=== PATIENT | female | born 1970 | race Caucasian/White ===

== ENCOUNTER 2020-07-15 18:39 | Inpatient (IN) | payer OTHER ==
[~2020-07-15] VITALS: Ht 162.6 cm; Wt 101.3 kg
[2020-07-15 19:27] LABS: Basophils # (auto) 0.1 10 ^3/uL (0-0.2); Basophils % (auto) 1.5 % (0.0-2.0); Eosinophils # (auto) 0.1 10 ^3/uL (0-0.8); Eosinophils % (auto) 0.8 % (0.0-7.0); Hematocrit 37.5 % (36.0-46.0); Hemoglobin 12.7 g/dL (12.2-16.2); Lymphocytes # (auto) 1.2 10 ^3/uL (0.4-5.4); Lymphocytes % (auto) 16.6 % (10.0-50.0); Mean Corpuscular Hgb Conc. 33.9 g/dL (32.0-36.0); Mean Corpuscular Volume 91.2 fL (80.0-100.0); Monocytes # (auto) 0.6 10 ^3/uL (0-1.3); Monocytes % (auto) 8.3 % (0.0-12.0); Neutrophils # (auto) 5.1 10 ^3/uL (1.6-8.6); Neutrophils % (auto) 72.8 % (37.0-80.0); Nucleated Red Blood Cells % 0.1 %; Platelet Count (auto) 235 10^3/uL (140-450); Red Blood Cells 4.12 10^6/uL (4.0-5.20); Red Cell Distribution Width 14.5 % (11.8-14.3)
[2020-07-15 19:47] LABS: Calcium 8.4 mg/dL (8.5-10.1)
[2020-07-15 20:04] LABS: Bilirubin, Total 8.2 mg/dL (0.2-1.0); Total Protein 7.1 g/dL (6.4-8.2)
[2020-07-15 20:18] LABS: Potassium 2.8 mmol/L (3.5-5.1)
[2020-07-15 20:27] LABS: BUN/Creatinine Ratio 12.5
[2020-07-15] MEDS ORDERED: POTASSIUM EFFERVESENT TAB 25 MEQ PO ONE (20:30)
[2020-07-15] MEDS ORDERED: POTASSIUM CHL 20MEQ/100ML 100 ML IV ONE (21:30)
[2020-07-15] MEDS ORDERED: ONDANSETRON HCL 4 MG/2 ML VIAL IV PRN (23:15)
[2020-07-16 00:20] LABS: Urine Amorphous Crystal FEW /hpf (None Seen); Urine Bacteria FEW /hpf (None Seen); Urine Blood Negative /uL (Negative); Urine Specific Gravity 1.007 (1.001-1.035); Urine WBC 1 /hpf (0 - 5)
[2020-07-16] MEDS ORDERED: DEXTROSE (50%) 50ML SYRG IV PRN (02:15)
[2020-07-16 02:38] VITALS: BP 164/89
[2020-07-16] MEDS ORDERED: cloNIDine HCL 0.1 MG TAB PO PRN (02:45)
[2020-07-16] MEDS: SOD CHL 0.45% WITH 20MEQ KCL 1,000 ML IV SCH ×2 (03:08→13:55)
[2020-07-16] MEDS: traMADol HCL 50 MG TAB PO PRN ×3 (03:08→23:52)
[2020-07-16] MEDS ORDERED: PNEUMOCOCCAL VACC POLYS 25 MCG/0.5 ML VIAL IM ONE (03:45)
[2020-07-16] MEDS ORDERED: INSREG3 IV (04:00)
[2020-07-16] MEDS ORDERED: METF-370 PO (04:00)
[2020-07-16] MEDS ORDERED: IBUP200C3 PO (04:00)
[2020-07-16] MEDS ORDERED: OXYB10TA14 PO (04:00)
[2020-07-16] MEDS ORDERED: LEVO25TA6 PO (04:00)
[2020-07-16] MEDS ORDERED: INSU100I43 SC (04:00)
[2020-07-16] MEDS ORDERED: INSUINJ2 SC (04:00)
[2020-07-16 05:00] VITALS: BP 164/89
[2020-07-16 06:20] LABS: Basophils # (auto) 0 10 ^3/uL (0-0.2); Basophils % (auto) 0.7 % (0.0-2.0); Eosinophils # (auto) 0.1 10 ^3/uL (0-0.8); Eosinophils % (auto) 1.1 % (0.0-7.0); Hematocrit 32.1 % (36.0-46.0); Hemoglobin 11.2 g/dL (12.2-16.2); Mean Corpuscular Hemoglobin 31.7 pg (28.0-32.0); Mean Corpuscular Hgb Conc. 34.7 g/dL (32.0-36.0); Mean Corpuscular Volume 91.1 fL (80.0-100.0); Monocytes # (auto) 0.4 10 ^3/uL (0-1.3); Monocytes % (auto) 7.6 % (0.0-12.0); Neutrophils # (auto) 4.1 10 ^3/uL (1.6-8.6); Neutrophils % (auto) 72.6 % (37.0-80.0); Platelet Count (auto) 181 10^3/uL (140-450); Red Blood Cells 3.52 10^6/uL (4.0-5.20); Red Cell Distribution Width 14.8 % (11.8-14.3); White Blood Cell 5.7 10^3/uL (4.4-10.8)
[2020-07-16 06:25] LABS: Potassium 3.4 mmol/L (3.5-5.1)
[2020-07-16 06:30] LABS: INR 1.28 (0.9-1.15); Partial Thromboplastin Time 30.5 sec (23.0-31.2)
[2020-07-16 06:31] LABS: Albumin 2.5 g/dL (3.4-5.0); BUN/Creatinine Ratio 12.1; Bilirubin, Total 7.6 mg/dL (0.2-1.0); Total Protein 5.9 g/dL (6.4-8.2)
[2020-07-16] MEDS: ACCU-CHEK COMFORT CURVE STRIP VI SCH ×4 (06:41→21:53)
[2020-07-16] MEDS: LEVOTHYROXINE SODIUM 50 MCG TAB PO SCH (06:41)
[2020-07-16] MEDS: InsuLIN REG 1unit/0.01ml Soln (100units/ml) SC SCH ×4 (06:46→21:55)
[2020-07-16 09:00] VITALS: BP 124/76
[2020-07-16] MEDS: INSULIN NPH Isophane (HUMAN) 1unit/0.01ml Susp(100units/ml) SC SCH ×2 (10:00→21:54)
[2020-07-16] MEDS: metFORMIN HYDROCHLORIDE 500 MG TAB PO SCH ×2 (10:10→21:53)
[2020-07-16] MEDS: LISINOPRIL 20 MG TAB PO SCH (10:13)
[2020-07-16] MEDS: PROPRANOLOL HCL 20 MG TAB PO SCH (10:13)
[2020-07-16] MEDS: LACTULOSE 20Gm/30ML SOLN PO SCH ×2 (10:28→21:53)
[2020-07-16 13:48] VITALS: BP 133/89
[2020-07-16] MEDS: OXYBUTYNIN CHL 5 MG TAB PO SCH (13:54)
[2020-07-16 16:37] VITALS: BP 158/92
[2020-07-16 22:00] VITALS: BP 116/70
[2020-07-17] VITALS (11 sets, daily range): BP systolic 115–164; BP diastolic 73–93
[2020-07-17 06:22] LABS: Basophils # (auto) 0 10 ^3/uL (0-0.2); Basophils % (auto) 0.6 % (0.0-2.0); Eosinophils # (auto) 0.1 10 ^3/uL (0-0.8); Eosinophils % (auto) 1.6 % (0.0-7.0); Hemoglobin 11.8 g/dL (12.2-16.2); Lymphocytes # (auto) 1.3 10 ^3/uL (0.4-5.4); Lymphocytes % (auto) 19.4 % (10.0-50.0); Mean Corpuscular Hemoglobin 31.7 pg (28.0-32.0); Mean Corpuscular Hgb Conc. 34.6 g/dL (32.0-36.0); Mean Corpuscular Volume 91.5 fL (80.0-100.0); Monocytes # (auto) 0.6 10 ^3/uL (0-1.3); Monocytes % (auto) 8.6 % (0.0-12.0); Neutrophils # (auto) 4.5 10 ^3/uL (1.6-8.6); Neutrophils % (auto) 69.8 % (37.0-80.0); Platelet Count (auto) 182 10^3/uL (140-450); Red Blood Cells 3.71 10^6/uL (4.0-5.20); Red Cell Distribution Width 15.1 % (11.8-14.3); White Blood Cell 6.5 10^3/uL (4.4-10.8)
[2020-07-17] MEDS: ACCU-CHEK COMFORT CURVE STRIP VI SCH ×4 (06:36→22:26)
[2020-07-17] MEDS: InsuLIN REG 1unit/0.01ml Soln (100units/ml) SC SCH ×4 (06:36→22:26)
[2020-07-17] MEDS: LEVOTHYROXINE SODIUM 50 MCG TAB PO SCH (06:36)
[2020-07-17 06:46] LABS: Potassium 3.4 mmol/L (3.5-5.1)
[2020-07-17 07:21] LABS: Albumin 2.7 g/dL (3.4-5.0); BUN/Creatinine Ratio 15.2; Bilirubin, Total 8.2 mg/dL (0.2-1.0); Total Protein 6.5 g/dL (6.4-8.2)
[2020-07-17] MEDS: metFORMIN HYDROCHLORIDE 500 MG TAB PO SCH ×2 (10:00→22:00)
[2020-07-17] MEDS: INSULIN NPH Isophane (HUMAN) 1unit/0.01ml Susp(100units/ml) SC SCH (10:00)
[2020-07-17] MEDS: OXYBUTYNIN CHL 5 MG TAB PO SCH (10:15)
[2020-07-17] MEDS: LISINOPRIL 20 MG TAB PO SCH (10:17)
[2020-07-17] MEDS: traMADol HCL 50 MG TAB PO PRN ×2 (10:18→19:47)
[2020-07-17] MEDS: PROPRANOLOL HCL 20 MG TAB PO SCH (10:18)
[2020-07-17] MEDS ORDERED: IOHEXOL 300 MG/ML 100ML BOTTLE IJ ONE (14:48)
[2020-07-17] MEDS ORDERED: MEPERIDINE HCL (50 MG/ML) 1 ML VIAL ONE (15:22)
[2020-07-17] MEDS ORDERED: MIDAZOLAM HCL 1MG/1ML-2 ML VIAL ONE (15:22)
[2020-07-17] MEDS ORDERED: fentaNYL CITRATE 100 MCG/2 ML VL ONE (15:22)
[2020-07-17] MEDS ORDERED: DexAMETHasone SOD PHOS 10MG/1ML VIAL INJ ONE (15:36)
[2020-07-17] MEDS ORDERED: PROPOFOL 10 MG/ML 20 ML IV ONE (15:36)
[2020-07-17] MEDS ORDERED: ePHEDrine SULFATE 50 MG/ML AMP IV PRN (16:15)
[2020-07-17] MEDS ORDERED: ONDANSETRON HCL 4 MG/2 ML VIAL IV PRN (16:15)
[2020-07-17] MEDS ORDERED: HYDROmorphone HCL 2 MG/ML VL IV PRN (16:15)
[2020-07-17] MEDS ORDERED: KETOROLAC TROMETH 30 MG/ML 1ML VIAL IV ONE (16:15)
[2020-07-17] MEDS ORDERED: MIDAZOLAM HCL 1MG/1ML-2 ML VIAL IV PRN (16:15)
[2020-07-17] MEDS ORDERED: MORPHINE SULFATE 4 MG/ML SYR/VIAL IV PRN (16:15)
[2020-07-17] MEDS ORDERED: LABETALOL HCL 5 MG/ML 4ML SYRINGE IV PRN (16:15)
[2020-07-18] MEDS: INSULIN NPH Isophane (HUMAN) 1unit/0.01ml Susp(100units/ml) SC SCH ×2 (00:17→11:26)
[2020-07-18 05:16] VITALS: BP 98/53
[2020-07-18 06:12] LABS: Albumin 2.8 g/dL (3.4-5.0); Bilirubin, Direct 3.6 mg/dL (0-0.2)
[2020-07-18 06:29] LABS: Bilirubin, Total 4.4 mg/dL (0.2-1.0); Total Protein 6.6 g/dL (6.4-8.2)
[2020-07-18] MEDS: LEVOTHYROXINE SODIUM 50 MCG TAB PO SCH (06:39)
[2020-07-18] MEDS: ACCU-CHEK COMFORT CURVE STRIP VI SCH ×4 (06:40→21:40)
[2020-07-18] MEDS: InsuLIN REG 1unit/0.01ml Soln (100units/ml) SC SCH ×4 (06:44→21:51)
[2020-07-18 08:24] VITALS: BP 130/60
[2020-07-18] MEDS: traMADol HCL 50 MG TAB PO PRN ×3 (08:32→19:51)
[2020-07-18 08:50] LABS: Hepatitis B Surface Antigen Negative (Negative)
[2020-07-18] MEDS: LISINOPRIL 20 MG TAB PO SCH (09:55)
[2020-07-18] MEDS: OXYBUTYNIN CHL 5 MG TAB PO SCH (09:55)
[2020-07-18] MEDS: PROPRANOLOL HCL 20 MG TAB PO SCH (09:57)
[2020-07-18] MEDS: metFORMIN HYDROCHLORIDE 500 MG TAB PO SCH ×2 (10:00→21:54)
[2020-07-18 13:00] VITALS: BP_SYST 120; BP_SYST 126; BP_SYST 134; BP_DIAS 73; BP_DIAS 78; BP_DIAS 84
[2020-07-18 13:10] VITALS: BP 120/78
[2020-07-18 16:35] VITALS: BP 110/75
[2020-07-18] MEDS: KETOROLAC TROMETH 30 MG/ML 1ML VIAL IV PRN (21:39)
[2020-07-18 22:00] VITALS: BP 132/71
[2020-07-19] MEDS: INSULIN NPH Isophane (HUMAN) 1unit/0.01ml Susp(100units/ml) SC SCH ×3 (00:09→22:05)
[2020-07-19 05:00] VITALS: BP 107/67
[2020-07-19] MEDS: LEVOTHYROXINE SODIUM 50 MCG TAB PO SCH (06:31)
[2020-07-19] MEDS: ACCU-CHEK COMFORT CURVE STRIP VI SCH ×4 (06:32→21:52)
[2020-07-19] MEDS: KETOROLAC TROMETH 30 MG/ML 1ML VIAL IV PRN ×3 (06:43→20:40)
[2020-07-19] MEDS: InsuLIN REG 1unit/0.01ml Soln (100units/ml) SC SCH ×4 (06:43→22:05)
[2020-07-19 09:00] VITALS: BP 95/65
[2020-07-19] MEDS: metFORMIN HYDROCHLORIDE 500 MG TAB PO SCH ×2 (09:36→21:52)
[2020-07-19] MEDS: LISINOPRIL 20 MG TAB PO SCH (09:36)
[2020-07-19] MEDS: OXYBUTYNIN CHL 5 MG TAB PO SCH (09:37)
[2020-07-19] MEDS: PROPRANOLOL HCL 20 MG TAB PO SCH (09:37)
[2020-07-19 11:13] LABS: Hepatitis A Ab IgM Negative
[2020-07-19 11:15] LABS: Hepatitis B Core IgM Negative
[2020-07-19 11:53] LABS: Hepatitis C Antibody Negative (Negative)
[2020-07-19 13:00] VITALS: BP 145/93
[2020-07-19 17:03] VITALS: BP 104/64
[2020-07-19 22:00] VITALS: BP 139/82
[2020-07-20 05:00] VITALS: BP 101/60
[2020-07-20] MEDS: KETOROLAC TROMETH 30 MG/ML 1ML VIAL IV PRN ×4 (05:49→21:27)
[2020-07-20] MEDS: InsuLIN REG 1unit/0.01ml Soln (100units/ml) SC SCH ×4 (06:43→21:28)
[2020-07-20] MEDS: LEVOTHYROXINE SODIUM 50 MCG TAB PO SCH (06:44)
[2020-07-20] MEDS: ACCU-CHEK COMFORT CURVE STRIP VI SCH ×4 (07:10→21:26)
[2020-07-20 09:02] VITALS: BP 129/77
[2020-07-20] MEDS: OXYBUTYNIN CHL 5 MG TAB PO SCH (10:04)
[2020-07-20] MEDS: PROPRANOLOL HCL 20 MG TAB PO SCH (10:05)
[2020-07-20] MEDS: metFORMIN HYDROCHLORIDE 500 MG TAB PO SCH ×2 (10:05→21:26)
[2020-07-20] MEDS: INSULIN NPH Isophane (HUMAN) 1unit/0.01ml Susp(100units/ml) SC SCH ×2 (10:06→21:28)
[2020-07-20] MEDS: LISINOPRIL 20 MG TAB PO SCH (10:06)
[2020-07-20] MEDS ORDERED: cefTRIAXone 1GM/50ML D5W 50 ML IV ONE (11:00)
[2020-07-20] MEDS ORDERED: AZITHROMYCIN 250 MG TAB PO ONE (11:00)
[2020-07-20 12:37] VITALS: BP 114/74
[2020-07-20] MEDS: PROMETHAZINE-DM 5 ML ORAL SYRUP PO PRN ×2 (16:17→21:26)
[2020-07-20 16:57] VITALS: BP 116/63
[2020-07-20 23:34] VITALS: BP 110/69
[2020-07-21] MEDS: KETOROLAC TROMETH 30 MG/ML 1ML VIAL IV PRN ×3 (04:18→21:43)
[2020-07-21] MEDS: PROMETHAZINE-DM 5 ML ORAL SYRUP PO PRN ×3 (04:18→21:43)
[2020-07-21 05:20] LABS: Basophils # (auto) 0 10 ^3/uL (0-0.2); Basophils % (auto) 0.4 % (0.0-2.0); Eosinophils # (auto) 0.2 10 ^3/uL (0-0.8); Eosinophils % (auto) 2.6 % (0.0-7.0); Hematocrit 40.1 % (36.0-46.0); Hemoglobin 13.3 g/dL (12.2-16.2); Lymphocytes # (auto) 1.8 10 ^3/uL (0.4-5.4); Lymphocytes % (auto) 20.9 % (10.0-50.0); Mean Corpuscular Hemoglobin 30.5 pg (28.0-32.0); Mean Corpuscular Hgb Conc. 33.3 g/dL (32.0-36.0); Mean Corpuscular Volume 91.7 fL (80.0-100.0); Monocytes # (auto) 0.7 10 ^3/uL (0-1.3); Monocytes % (auto) 8.4 % (0.0-12.0); Neutrophils % (auto) 67.7 % (37.0-80.0); Platelet Count (auto) 236 10^3/uL (140-450); Red Blood Cells 4.37 10^6/uL (4.0-5.20); Red Cell Distribution Width 14.4 % (11.8-14.3); White Blood Cell 8.8 10^3/uL (4.4-10.8)
[2020-07-21 05:51] LABS: Albumin 2.8 g/dL (3.4-5.0); BUN/Creatinine Ratio 27.7; Bilirubin, Total 2.4 mg/dL (0.2-1.0); Calcium 9.5 mg/dL (8.5-10.1); Total Protein 7.1 g/dL (6.4-8.2)
[2020-07-21 05:54] VITALS: BP 117/69
[2020-07-21] MEDS: InsuLIN REG 1unit/0.01ml Soln (100units/ml) SC SCH ×4 (06:29→21:41)
[2020-07-21] MEDS: ACCU-CHEK COMFORT CURVE STRIP VI SCH ×4 (06:29→21:40)
[2020-07-21] MEDS: LEVOTHYROXINE SODIUM 50 MCG TAB PO SCH (06:29)
[2020-07-21 08:30] VITALS: BP 150/86
[2020-07-21] MEDS: cefTRIAXone 1GM/50ML D5W 50 ML IV SCH (09:31)
[2020-07-21] MEDS: OXYBUTYNIN CHL 5 MG TAB PO SCH (09:32)
[2020-07-21] MEDS: PROPRANOLOL HCL 20 MG TAB PO SCH (09:32)
[2020-07-21] MEDS: metFORMIN HYDROCHLORIDE 500 MG TAB PO SCH ×2 (09:32→21:40)
[2020-07-21] MEDS: LISINOPRIL 20 MG TAB PO SCH (09:33)
[2020-07-21] MEDS: AZITHROMYCIN 250 MG TAB PO SCH (09:33)
[2020-07-21] MEDS: INSULIN NPH Isophane (HUMAN) 1unit/0.01ml Susp(100units/ml) SC SCH ×2 (09:34→21:42)
[2020-07-21 13:24] VITALS: BP 91/57
[2020-07-21 16:27] VITALS: BP 157/71
[2020-07-22] MEDS: KETOROLAC TROMETH 30 MG/ML 1ML VIAL IV PRN ×3 (04:53→14:46)
[2020-07-22] MEDS: PROMETHAZINE-DM 5 ML ORAL SYRUP PO PRN ×3 (04:53→14:47)
[2020-07-22] MEDS: ACCU-CHEK COMFORT CURVE STRIP VI SCH ×3 (06:03→17:00)
[2020-07-22] MEDS: LEVOTHYROXINE SODIUM 50 MCG TAB PO SCH (06:03)
[2020-07-22] MEDS: InsuLIN REG 1unit/0.01ml Soln (100units/ml) SC SCH ×3 (06:13→17:00)
[2020-07-22 06:26] VITALS: BP 108/69
[2020-07-22 07:54] VITALS: BP 123/74
[2020-07-22 08:55] VITALS: BP 123/74
[2020-07-22] MEDS: cefTRIAXone 1GM/50ML D5W 50 ML IV SCH (10:21)
[2020-07-22] MEDS: LISINOPRIL 20 MG TAB PO SCH (10:24)
[2020-07-22] MEDS: OXYBUTYNIN CHL 5 MG TAB PO SCH (10:25)
[2020-07-22] MEDS: metFORMIN HYDROCHLORIDE 500 MG TAB PO SCH (10:25)
[2020-07-22] MEDS: AZITHROMYCIN 250 MG TAB PO SCH (10:25)
[2020-07-22] MEDS: PROPRANOLOL HCL 20 MG TAB PO SCH (10:27)
[2020-07-22] MEDS: INSULIN NPH Isophane (HUMAN) 1unit/0.01ml Susp(100units/ml) SC SCH (10:29)
[2020-07-22 11:53] VITALS: BP 107/80
[2020-07-22 15:41] VITALS: BP 107/80
== END 2020-07-22 17:50 | DRG 435 ==
LOC: ER 18:42 → EEVIPCON 18:42 → OVERFLOW 18:43 → CENTRAL 07-16 02:38 → WEST WING 07-22 12:23
PROVIDERS: ADMIT Internal Medicine; ATTEND Internal Medicine
PROC: BF111ZZ Fluoroscopy of Biliary and Pancreatic Ducts using Low Osmolar Contrast (ICD-10-PCS; 2020-07-17)
PROC: 0FD98ZX Extraction of Common Bile Duct, Via Natural or Artificial Opening Endoscopic, Diagnostic (ICD-10-PCS; 2020-07-17)
PROC: 0F798DZ Dilation of Common Bile Duct with Intraluminal Device, Via Natural or Artificial Opening Endoscopic (ICD-10-PCS; principal; 2020-07-17 15:15)
DX: C25.9 Malignant neoplasm of pancreas, unspecified (principal); K83.1 Obstruction of bile duct; E44.1 Mild protein-calorie malnutrition; E87.6 Hypokalemia; K75.9 Inflammatory liver disease, unspecified; Z20.828 Contact with and (suspected) exposure to other viral communicable diseases; E11.9 Type 2 diabetes mellitus without complications; F20.9 Schizophrenia, unspecified; F41.9 Anxiety disorder, unspecified; E03.9 Hypothyroidism, unspecified; I10 Essential (primary) hypertension; M81.0 Age-related osteoporosis without current pathological fracture; E66.01 Morbid (severe) obesity due to excess calories; E78.5 Hyperlipidemia, unspecified; I25.10 Atherosclerotic heart disease of native coronary artery without angina pectoris; Z79.899 Other long term (current) drug therapy; Z68.38 Body mass index [BMI] 38.0-38.9, adult; Z98.51 Tubal ligation status; I25.2 Old myocardial infarction; Z90.710 Acquired absence of both cervix and uterus; Z90.49 Acquired absence of other specified parts of digestive tract; Z80.0 Family history of malignant neoplasm of digestive organs; Z88.6 Allergy status to analgesic agent; Z88.5 Allergy status to narcotic agent; Z79.4 Long term (current) use of insulin; Z80.1 Family history of malignant neoplasm of trachea, bronchus and lung; Z80.7 Family history of other malignant neoplasms of lymphoid, hematopoietic and related tissues; Z86.74 Personal history of sudden cardiac arrest; Z87.891 Personal history of nicotine dependence; Z80.3 Family history of malignant neoplasm of breast; Z82.0 Family history of epilepsy and other diseases of the nervous system; Z82.49 Family history of ischemic heart disease and other diseases of the circulatory system; Z80.41 Family history of malignant neoplasm of ovary
CPT/HCPCS: 36415; 71045; 71046; 74018; 74176; 74181; 74183; 76001; 76705; 80053; 80074; 80076; 80320; 81001; 82105; 82140; 82248; 82378; 82962; 83605; 83690; 84443; 85025; 85610; 85730; 86301; 87081; 93005; 96365; 96366; G0378; J0696; J1100; J1815; J1885; J2250; J2704; J3480

== ENCOUNTER 2020-09-18 17:50 | Emergency (ER) | payer OTHER ==
[~2020-09-18] VITALS: Ht 162.6 cm; Wt 90.7 kg
[~2020-09-18 17:50] MED LIST: IBUP200C3 PO; INSREG3 IV; INSU100I43 SC; INSUINJ2 SC; LEVO25TA6 PO; METF-370 PO; OXYB10TA14 PO
[2020-09-18] MEDS ORDERED: MORPHINE SULF INJ 2 MG/ML SYRINGE 1ML IV ONE (19:15)
[2020-09-18] MEDS ORDERED: ONDANSETRON HCL 4 MG/2 ML VIAL IV ONE ×2 (19:15→22:45)
[2020-09-18] MEDS ORDERED: SODIUM CHLORIDE 0.9% 1,000 ML IVB ONE (19:15)
[2020-09-18 20:52] LABS: Basophils # (auto) 0.1 10 ^3/uL (0-0.2); Basophils % (auto) 1.2 % (0.0-2.0); Eosinophils # (auto) 0.1 10 ^3/uL (0-0.8); Hematocrit 36.8 % (36.0-46.0); Hemoglobin 12.6 g/dL (12.2-16.2); Lymphocytes # (auto) 1.2 10 ^3/uL (0.4-5.4); Lymphocytes % (auto) 19.8 % (10.0-50.0); Mean Corpuscular Hemoglobin 30.9 pg (28.0-32.0); Mean Corpuscular Hgb Conc. 34.3 g/dL (32.0-36.0); Mean Corpuscular Volume 90.1 fL (80.0-100.0); Monocytes # (auto) 0.3 10 ^3/uL (0-1.3); Monocytes % (auto) 5.3 % (0.0-12.0); Neutrophils # (auto) 4.2 10 ^3/uL (1.6-8.6); Neutrophils % (auto) 71.7 % (37.0-80.0); Platelet Count (auto) 243 10^3/uL (140-450); Red Blood Cells 4.08 10^6/uL (4.0-5.20); Red Cell Distribution Width 13.7 % (11.8-14.3); White Blood Cell 5.8 10^3/uL (4.4-10.8)
[2020-09-18 21:04] LABS: INR 1.18 (0.9-1.15); Partial Thromboplastin Time 25.1 sec (23.0-31.2)
[2020-09-18 21:05] LABS: Alanine Aminotransferase 28 U/L (13-56); Albumin 3.2 g/dL (3.4-5.0); Anion Gap 10 (5-15); Aspartate Aminotransferase 28 U/L (15-37); BUN/Creatinine Ratio 14.3; Blood Urea Nitrogen 4 mg/dL (7-18); Calcium 8.5 mg/dL (8.5-10.1); Carbon Dioxide 24 mmol/L (21-32); Chloride 105 mmol/L (98-107); GFR African American 325 mL/min; GFR Non-African American 269 mL/min; Glucose 120 mg/dL (74-106); Lipase 21 U/L (73-393); Magnesium 1.4 mg/dL (1.6-2.6); Potassium 3.6 mmol/L (3.5-5.1); Sodium 139 mmol/L (136-145)
[2020-09-18 21:08] LABS: Alkaline Phosphatase 208 U/L (45-117); Bilirubin, Total 0.7 mg/dL (0.2-1.0); Total Protein 6.8 g/dL (6.4-8.2)
[2020-09-18] MEDS ORDERED: CIPROFLOXACIN 400MG/200ML 200 ML IV ONE (22:15)
[2020-09-18] MEDS ORDERED: metroNIDAZOLE 500MG/100ML 100 ML IV ONE (22:15)
[2020-09-19 02:00] VITALS: BP 142/83
== END 2020-09-19 02:31 | disposition home or self-care (01) ==
LOC: ER 17:50 → EEVIPCON 17:50 → EDBD 17:50 → ER 09-19 02:31
DX: K52.89 Other specified noninfective gastroenteritis and colitis (principal); E11.9 Type 2 diabetes mellitus without complications; I10 Essential (primary) hypertension; Z79.899 Other long term (current) drug therapy; Z88.6 Allergy status to analgesic agent
CPT/HCPCS: 36415; 71045; 74176; 80053; 83690; 83735; 85025; 85610; 85730; 96361; 96365; 96368; 96375; 96376; 99285; J0744; J2270; J2405; J3490

== ENCOUNTER 2020-11-12 15:19 | Emergency (ER) | payer OTHER ==
[~2020-11-12] VITALS: Ht 162.6 cm; Wt 88.5 kg
[2020-11-12] MEDS ORDERED: PANTOPRAZOLE 40 MG/10 ML VIAL INJ IV STA (15:34)
[2020-11-12] MEDS ORDERED: MORPHINE SULFATE 4 MG/ML SYR/VIAL IV ONE ×2 (15:45→19:15)
[2020-11-12] MEDS ORDERED: ONDANSETRON HCL 4 MG/2 ML VIAL IV ONE ×2 (15:45→19:15)
[2020-11-12 16:12] LABS: Hematocrit 36.1 % (36.0-46.0); Hemoglobin 12.5 g/dL (12.2-16.2); Mean Corpuscular Hemoglobin 30.7 pg (28.0-32.0); Mean Corpuscular Hgb Conc. 34.7 g/dL (32.0-36.0); Mean Corpuscular Volume 88.5 fL (80.0-100.0); Red Blood Cells 4.08 10^6/uL (4.0-5.20); White Blood Cell 13.3 10^3/uL (4.4-10.8)
[2020-11-12 16:26] LABS: Basophils % (manual) 0 (0.0-2.0); Blast Cells 0; Eosinophils % (manual) 0 (0-7); Myelocytes % 0; Promyelocytes % 0; Reactive Lymphocytes 0
[2020-11-12 16:28] LABS: Potassium 3.4 mmol/L (3.5-5.1)
[2020-11-12 16:32] LABS: Albumin 2.2 g/dL (3.4-5.0); BUN/Creatinine Ratio 28.1; Calcium 8.5 mg/dL (8.5-10.1); Magnesium 1.5 mg/dL (1.6-2.6)
[2020-11-12 16:33] LABS: INR 2.6 (0.9-1.15)
[2020-11-12 16:46] LABS: Bilirubin, Total 15.6 mg/dL (0.2-1.0); Total Protein 6.8 g/dL (6.4-8.2)
[2020-11-12 17:00] LABS: Band Neutrophils % (manual) 2; Lymphocytes % (manual) 10 (10.0-50.0); Metamyelocytes % 1; Monocytes % (manual) 6 (0-12)
[2020-11-12] MEDS ORDERED: PHYTONADIONE(VitK) ORAL Susp 10mg/10ml(1mg/ml) PO ONE (17:15)
[2020-11-12 19:10] VITALS: BP 117/73
[2020-11-12 20:52] LABS: Urine Bacteria FEW /hpf (None Seen); Urine Blood Negative /uL (Negative); Urine Mucus FEW (None Seen); Urine WBC 4 /hpf (0 - 5)
== END 2020-11-12 19:37 | disposition short-term general hospital (02) ==
LOC: EEVIPCON 15:19 → ER 15:19
DX: K83.1 Obstruction of bile duct (principal); C25.9 Malignant neoplasm of pancreas, unspecified; C78.7 Secondary malignant neoplasm of liver and intrahepatic bile duct; E80.6 Other disorders of bilirubin metabolism; E11.9 Type 2 diabetes mellitus without complications; I10 Essential (primary) hypertension; Z87.891 Personal history of nicotine dependence; Z98.51 Tubal ligation status; Z90.49 Acquired absence of other specified parts of digestive tract; Z98.890 Other specified postprocedural states; Z79.899 Other long term (current) drug therapy; Z88.5 Allergy status to narcotic agent
CPT/HCPCS: 36415; 74176; 80053; 81001; 82150; 83690; 83735; 85007; 85027; 85610; 85730; 93005; 96374; 96375; 96376; 99285; C9113; J2270; J2405; J3430